=== PATIENT | female | born 2000 | race Caucasian/White ===

== ENCOUNTER 2024-05-30 07:40 | Emergency (ER) | payer MEDICAID ==
[~2024-05-30] VITALS: Ht 165.1 cm; Wt 59.1 kg
[2024-05-30 07:45] VITALS: BP 120/72; PULSE 78; RESP 18; TEMP 98.3; O2SAT 98
== END 2024-05-30 09:38 | disposition home or self-care (01) ==
LOC: EMS 07:40
DX: Z11.8 Encounter for screening for other infectious and parasitic diseases (principal)
CPT/HCPCS: 86480; 86592; 87491; 87591; 99283